=== PATIENT | male | born 1985 | race African-American/Black ===

== ENCOUNTER 2018-07-05 19:11 | Emergency (ER) | payer OTHER ==
[~2018-07-05] VITALS: Ht 167.6 cm; Wt 77.1 kg
[2018-07-05 19:15] VITALS: BP 115/68
[2018-07-05] MEDS ORDERED: IBUPROFEN 800800 M1 PO (19:22)
[2018-07-05] MEDS ORDERED: TESSALON PERLE100 MG PO (20:04)
[2018-07-05] MEDS ORDERED: ZPAK PO (20:04)
== END 2018-07-05 20:09 | disposition home or self-care (01) ==
LOC: ER 19:11
DX: A37.90 Whooping cough, unspecified species without pneumonia (principal)